=== PATIENT | male | born 1960 | race Caucasian/White ===

== ENCOUNTER 2020-06-27 04:36 | Outpatient (CLI) | payer BC, SELFPAY ==
--- NOTE | 2020-06-27 17:45 | RT.EKG_ITS ---
APPROVED REPORT Exam: Resting ECG Patient Location: O HR:76 bpm ECG Measurements Heart Rate 76 AXIS VT 165 P 31 QRSd 84 QRS 3 QT 357 T 19 QTc 401 Conclusion Sinus rhythm...normal P axis, V-rate 60- 99
== END 2020-06-27 04:37 | disposition home or self-care (01) ==
LOC: RT 04:36
PROVIDERS: PCP Family Medicine; Visit Provider Psychiatry & Neurology Neurology
DX: G40.109 Localization-related (focal) (partial) symptomatic epilepsy and epileptic syndromes with simple partial seizures, not intractable, without status epilepticus (principal); Z13.6 Encounter for screening for cardiovascular disorders
CPT/HCPCS: 93005; 93010

== ENCOUNTER 2021-10-04 07:18 | Outpatient (CLI) | payer BC, SELFPAY ==
[2021-10-04 07:46] VITALS: BP 120/75; PULSE 80; RESP 20; TEMP 36.6; O2SAT 96
--- NOTE | 2021-10-04 08:00 | DI.RAD_ITS ---
Exam(s) XR PAIN CLINIC CERVICAL SP 2V EXAM: XR PAIN CLINIC CERVICAL SP 2V CLINICAL HISTORY: Dx: Cervical Spondylosis TECHNIQUE: 2D and realtime digital imaging was performed. Radiologist not present. CONTRAST MATERIAL: None. COMPARISON: No exams were available for comparison FINDINGS: Fluoroscopy was provided for pain management therapy. Please refer to procedure report or details. Cumulative dose: Ka,r=3.20 mGy IMPRESSION: RADIATION DOSE DELIVERED:
[2021-10-04] MEDS: Bupivacaine 0.5% Pres-Free 30 ML VIAL IJ (08:47)
[2021-10-04 08:52] VITALS: BP 105/64; PULSE 87; RESP 19; O2SAT 97
--- NOTE | 2021-10-04 09:05 | PDOC.PAIN_ITS ---
Pain Clinic Procedure Note Procedure Note Procedure Note: CERVICAL MEDIAL BRANCH BLOCKS MAYA OJEDA has been referred to the [facility] for cervical medial branch blocks. COMMENTS: I evaluated him in the clinic on 07/26/21. He has an allergy to Iodine based contrast and thus this procedure will be completed without contrast. His pre-procedure pain VAS was 2/10. Dx: Cervical spondylosis without myelopathy. Mr. OJEDA was interviewed and the medical record reviewed. There were no medical, pharmacologic, radiographic or other structural contraindications to attempting fluoroscopically guided local anesthetic cervical medial branch blocks. Risks and expected side effects as well as potential benefit of the procedure were reviewed with Mr. OJEDA, and Mr. OJEDA's voiced concerns addressed. The printed consent form was signed and witnessed. Standard time-out procedure was performed. Mr. OJEDA was placed in the Right lateral decubitus position on the fluoroscopy table and automated blood pressure cuff and pulse oximeter applied. The skin entry points for approaching the anatomic target points of the segmental medial branches oLeft C3-C6 were identified with fluoroscopy and marked. Following thorough Chlorhexadine preparation of the skin and draping, a 25 gauge 1.5 skin needle was placed under fluoroscopic guidance down on to the target point for each respective segmental medial branch. Position was confirmed in A/P and leteral views at each level. At each point 0.3ml 0.5% bupivicaine was injected after negative aspiration. Dorothy vital signs were stable throughout the procedure and were as recorded in the docflowsheet by the nursing staff. Follow up plans and appointments were discussed with Mr. OJEDA. Mr. OJEDA was instructed to keep careful note of how the usual pain was modified by these in jections. Specifically, the patient was asked to keep a pain diary for the next 24 hours using a numeric pain scale of 0-10 and report these results at the follow-up visit. Post procedure instruction was given as documented in the nursing documentation and having met discharge criteria, Mr. De La Cruz was discharged from the [facility]. Based on the medial branches blocked today, if they patient has adequate relief and we are able to proceed to radiofrequency ablation, the treatment should result in the denervation of the left C3-C4, C4-C5 and C5-C6 FACET JOINTS. We would expect to denervate a total of 3 facets during the radiofrequency ablation. COMMENTS: Post-procedure pain VAS was 0/10. Chandler Guerrero DO, MPH [facility]-Pain Management [facility] CC: Felipe Ruiz
== END 2021-10-04 07:19 | disposition home or self-care (01) ==
LOC: PC 07:18
PROVIDERS: PCP Family Medicine; Visit Provider Preventive Medicine Occupational Medicine
DX: M47.812 Spondylosis without myelopathy or radiculopathy, cervical region (principal)
CPT/HCPCS: 64490; 64491; 64492; 72040

== ENCOUNTER 2021-11-01 09:32 | Outpatient (CLI) | payer BC, SELFPAY ==
--- NOTE | 2021-11-01 06:00 | DI.RAD_ITS ---
Exam(s) XR PAIN CLINIC CERVICAL SP 2V EXAM: XR PAIN CLINIC CERVICAL SP 2V CLINICAL HISTORY: Dx: Cervical Spondylosis TECHNIQUE: 2D and realtime digital imaging was performed. Radiologist not present. CONTRAST MATERIAL: None. COMPARISON: No exams were available for comparison FINDINGS: Fluoroscopy was provided for pain management therapy. Please refer to procedure report or details. Cumulative dose: Ka,r=3.27 mGy IMPRESSION: RADIATION DOSE DELIVERED:
[2021-11-01 09:40] VITALS: BP 122/82; PULSE 78; RESP 20; TEMP 36.6; O2SAT 98
--- NOTE | 2021-11-01 10:15 | PDOC.PAIN ---
Pain Clinic Procedure Note Procedure Note Procedure Note: CERVICAL MEDIAL BRANCH BLOCKS MAYA OJEDA has been referred to the [facility] for cervical medial branch blocks. COMMENTS: He had significant pain relief with his first procedure on 10/04/21. Pre-procedure pain VAS = 6/10. Dx: Cervical spondylosis without myelopathy No contrast was used as he is allergic Mr. OJEDA was interviewed and the medical record reviewed. There were no medical, pharmacologic, radiographic or other structural contraindications to attempting fluoroscopically guided local anesthetic cervical medial branch blocks. Risks and expected side effects as well as potential benefit of the procedure were reviewed with Mr. OJEDA, and Mr. De La Cruz voiced concerns addressed. The printed consent form was signed and witnessed. Standard time-out procedure was performed. Mr. OJEDAwas placed in the Right lateral decubitus position on the fluoroscopy table and automated blood pressure cuff and pulse oximeter applied. The skin entry points for approaching the anatomic target points of the segmental medial branches of left C3-C6 were identified with fluoroscopy and marked. Following thorough Chlorhexadine preparation of the skin and draping and 1% lidocaine infiltration of the skin entry points and subcutaneous tissues, a 25 gauge spinal needle was placed under fluoroscopic guidance down on to the target point for each respective segmental medial branch. Position was confirmed in A/P and leteral views. At each point 0.3 ml 2% Lidocaine was injected. Mr. De La Cruz vital signs were stable throughout the procedure and were as recorded in the docflowsheet by the nursing staff. Follow up plans and appointments were discussed with Mr. OJEDA. Mr. OJEDA was instructed to keep careful note of how the usual pain was modified by these injections. Specifically, the patient was asked to keep a pain diary for the next 24 hours using a numeric pain scale of 0-10 and report these results at the follow-up visit. Post procedure instruction was given as documented in the nursing documentation and having met discharge criteria, Mr. De La Cruz was discharged from the [facility]. Based on the medial branches blocked today, if they patient has adequate relief and we are able to proceed to radiofrequency ablation, the treatment should result in the denervation of the left C3-C4, C4-C5, C5-C6 FACET JOINTS. We would expect to denervate a total of 3 facets during the radiofrequency ablation. COMMENTS: Post-procedure pain VAS was 0/10. Chandler Guerrero DO, MPH [facility]-Pain Management [facility] CC: Felipe Ruiz
[2021-11-01 10:27] VITALS: BP 126/76; PULSE 76; RESP 12; O2SAT 97
[2021-11-01] MEDS: Lidocaine 2% Pres-Free 2 ML VIAL (10:27)
== END 2021-11-01 09:33 | disposition home or self-care (01) ==
PROVIDERS: PCP Family Medicine; Visit Provider Preventive Medicine Occupational Medicine
DX: M47.812 Spondylosis without myelopathy or radiculopathy, cervical region (principal)
CPT/HCPCS: 64490; 64491; 72040

== ENCOUNTER 2022-03-21 11:57 | Outpatient (CLI) | payer BC, SELFPAY ==
--- NOTE | 2022-03-21 06:00 | DI.RAD_ITS ---
Exam(s) XR PAIN CLINIC CERVICAL SP 2V EXAM: XR PAIN CLINIC CERVICAL SP 2V CLINICAL HISTORY: Dx: Cervical Spondylosis TECHNIQUE: 2D and realtime digital imaging was performed. Radiologist not present. CONTRAST MATERIAL: None. COMPARISON: No exams were available for comparison FINDINGS: Fluoroscopy was provided for pain management therapy. Please refer to procedure report or details. Cumulative dose: Ka,r=not given mGy IMPRESSION: RADIATION DOSE DELIVERED:
[2022-03-21 12:24] VITALS: BP 149/84; PULSE 72; RESP 20; TEMP 36.9; O2SAT 98
[2022-03-21] MEDS: fentaNYL 100 MCG/2 ML VIAL IVP (13:07)
[2022-03-21] MEDS: Lactated Ringers 500 ML 80 ML IV (13:08)
[2022-03-21] MEDS: Midazolam 2 MG/2 ML VIAL IVP (13:08)
[2022-03-21 13:41] VITALS: BP 145/68; PULSE 64; RESP 18; O2SAT 98
[2022-03-21] MEDS: Lidocaine 2% Pres-Free 5 ML VIAL IJ (13:49)
[2022-03-21] MEDS: Bupivacaine 0.5% Pres-Free 10 ML VIAL IJ (13:50)
[2022-03-21] MEDS: Dexamethasone Sod. Phos./Pres-Free 10 MG/ML VIAL IJ (13:56)
--- NOTE | 2022-03-21 14:34 | PDOC.PAIN_ITS ---
Date of service: 03/21/22 Time of Service: 14:39 Pain Clinic Procedure Note Procedure Note Procedure Note: Cervical Radiofrequency with [employer] Machine PROCEDURE NOTE Date of Service: March 21, 2022 Patient: Zachary Dodd Provider: Chandler Guerrero DO, MPH Pre Operative Diagnosis: Cervical Spondylosis without Myelopathy Post Operative Diagnosis: Same Pre-procedure pain: VAS = 5/10 PROCEDURE: 1. Left C3-C4 facet joint radiofrequency denervation 2.Left C4-C5 facet joint radiofrequency denervation 3.Left C5-C6 facet joint radiofrequency denervation Zachary Dodd was brought to the operating room and placed on the exam table in a comfortable lateral recumbant position. The place for the needle placement was obtained by manual palpation as well as radiographic confirmation. The sterile field was prepped by chlorhexidine and sterile drapes. Local anesthesia, both superficial and deep was provided by local infiltration of 3 ml Lidocaine 1%. Using fluoroscopic guidance, A 17g 50 mm radiofrequency introducer needle with a 2 mm active tip was placed overlying the left C3 cervical vertebra from the lateral approach and was advanced until bony contact was felt with the articular pillar. Attempted aspiration revealed no blood or cerebrospinal fluid. Motor testing was then performed with 2.0 volts and no upper extremity motor stimulation was observed. 1 ml of 2% Lidocaine was injected through the RF needle. A radiofrequency lesion of the left medial branch of C4 was then performed at 80 degrees Celsius for 2 minutes and 30 seconds. The same procedure was repeated for the LEFT C5 and C6 medial branches. 1/4 cc of Dexamethasone (10 mg/cc) was injected at each site after negative aspiration. This was followed by 1/2 cc of 0.5% Bupivacaine. POST PROCEDURE EVALUATION: IMPRESSION: 1. Medication given is documented in the MAR 2. We will call the patient in 1-3 weeks. 3. Estimated Blood Loss: <5ml 4. Fluoroscopy time: Documented in the EMR Follow up plans and appointments were discussed with the Zachary . Post procedure instruction was given as documented in nursing documentation and having met discharge criteria, Zachary was discharged from the Pain Management Center. COMMENTS: No apparent complications. Post-procedure pain: VAS= 0/10. Chandler Guerrero DO, MPH [facility]-Pain Management [facility]
== END 2022-03-21 11:58 | disposition home or self-care (01) ==
LOC: PC 11:57
PROVIDERS: PCP Family Medicine; Visit Provider Preventive Medicine Occupational Medicine
DX: M47.812 Spondylosis without myelopathy or radiculopathy, cervical region (principal)
CPT/HCPCS: 64633; 64634; 72040; J2250; J3010